=== PATIENT | female | born 1995 | race Caucasian/White ===

== ENCOUNTER 2017-07-19 17:39 | Outpatient (CLI) | payer MEDICAID | END 2017-07-19 21:09 | disposition home or self-care (01) | LOC: OBT 17:39 → L-D 17:41 → OBT 21:09 | DX: O26.892 Other specified pregnancy related conditions, second trimester (principal); Z3A.24 24 weeks gestation of pregnancy; J00 Acute nasopharyngitis [common cold] | CPT/HCPCS: 76815; 76817; 76818 ==

== ENCOUNTER 2017-07-20 12:18 | Outpatient (CLI) | payer MEDICAID | END 2017-07-20 14:12 | disposition home or self-care (01) | LOC: OBT 12:18 → L-D 12:18 → OBT 14:12 | DX: O26.872 Cervical shortening, second trimester (principal); Z3A.20 20 weeks gestation of pregnancy | CPT/HCPCS: Z7500 ==

== ENCOUNTER 2017-09-14 10:44 | Outpatient (CLI) | payer MEDICAID ==
[2017-09-14] MEDS: LACTATED RINGER'S 1,000 ML IV (12:43)
[2017-09-14] MEDS: TERBUTALINE 1 MG/ML INJ SC (12:44)
[2017-09-14 13:12] LABS: ADD UMIC NO; UR ASCORBIC ACID NEGATIVE (NEGATIVE); UR BILIRUBIN (Dip) NEGATIVE (NEGATIVE); UR BLOOD (Dip) NEGATIVE (NEGATIVE); UR CLARITY CLEAR (CLEAR); UR COLOR YELLOW (YELLOW); UR GLUCOSE (Dip) NEGATIVE (NEGATIVE); UR KETONES (Dip) 2+ mg/dL (NEGATIVE); UR LEUKOCYTE ESTERASE (Dip) NEGATIVE Leu/ul (NEGATIVE); UR NITRITE (Dip) NEGATIVE (NEGATIVE); UR SPECIFIC GRAVITY (Dip) 1.014 (1.003-1.030); UR TOTAL PROTEIN (Dip) NEGATIVE (NEGATIVE); UR UROBILINOGEN (Dip) 1+ mg/dL (NEGATIVE)
== END 2017-09-14 14:07 | disposition home or self-care (01) ==
LOC: OBT 10:44 → L-D 10:44 → OBT 14:07
DX: O62.9 Abnormality of forces of labor, unspecified (principal); Z3A.08 8 weeks gestation of pregnancy
CPT/HCPCS: 36415; 76815; 76817; 81003; 96360; 96372

== ENCOUNTER 2017-10-16 17:04 | Outpatient (CLI) | payer MEDICAID ==
[2017-10-16 18:44] LABS: RUPTURE FETAL MEMBRANES NEGATIVE (NEGATIVE)
== END 2017-10-16 19:28 | disposition home or self-care (01) ==
LOC: OBT 17:04 → L-D 17:05 → OBT 19:28
DX: O42.913 Preterm premature rupture of membranes, unspecified as to length of time between rupture and onset of labor, third trimester (principal); Z3A.33 33 weeks gestation of pregnancy
CPT/HCPCS: 76818; 84112

== ENCOUNTER 2017-11-17 18:07 | Outpatient (CLI) | payer MEDICAID | END 2017-11-17 20:40 | disposition home or self-care (01) | LOC: OBT 18:07 → L-D 18:08 → OBT 20:40 | DX: O36.8130 Decreased fetal movements, third trimester, not applicable or unspecified (principal); Z3A.37 37 weeks gestation of pregnancy | CPT/HCPCS: 76818 ==

== ENCOUNTER 2017-12-10 08:35 | Inpatient (IN) | payer MEDICAID ==
[2017-12-10] MEDS ORDERED: LIDOCAINE 1% (MPF) 30 ML INJ INJ (13:00)
[2017-12-10] MEDS ORDERED: OXYTOCIN 30 UNITS/LR 500 ML IV ×2 (13:00)
[2017-12-10] MEDS: NA PHOSPHATE/BIPHOS 133 ML ENEMA PR (13:00)
[2017-12-10] MEDS ORDERED: OXYCODONE/ASPIRIN (4.88/325) TAB PO (13:00)
[2017-12-10] MEDS ORDERED: MISOPROSTOL 200 MCG TAB PR (13:00)
[2017-12-10] MEDS ORDERED: IBUPROFEN 600 MG TAB PO (13:00)
[2017-12-10] MEDS ORDERED: METHYLERGONOVINE 0.2 MG INJ IM (13:00)
[2017-12-10 13:07] LABS: ADD UMIC NO; UR ASCORBIC ACID NEGATIVE (NEGATIVE); UR BILIRUBIN (Dip) NEGATIVE (NEGATIVE); UR BLOOD (Dip) NEGATIVE (NEGATIVE); UR CLARITY CLEAR (CLEAR); UR COLOR YELLOW (YELLOW); UR GLUCOSE (Dip) NEGATIVE (NEGATIVE); UR KETONES (Dip) NEGATIVE (NEGATIVE); UR LEUKOCYTE ESTERASE (Dip) NEGATIVE Leu/ul (NEGATIVE); UR NITRITE (Dip) NEGATIVE (NEGATIVE); UR SPECIFIC GRAVITY (Dip) 1.012 (1.003-1.030); UR TOTAL PROTEIN (Dip) NEGATIVE (NEGATIVE); UR UROBILINOGEN (Dip) NEGATIVE (NEGATIVE)
[2017-12-10] MEDS: LACTATED RINGER'S 1,000 ML IV* ×2 (14:54→22:27)
[2017-12-10] MEDS: MISOPROSTOL 25 MCG CAPSULE PO ×3 (14:59→23:56)
[2017-12-10 15:00] LABS: ADD MAN DIFF? NO
[2017-12-10 15:03] LABS: BASOPHILS % 0.5 % (0.0-2.0); EOSINOPHILS # 0.1 10^3/ul (0.0-0.5); EOSINOPHILS % 1.4 % (0.0-7.0); HEMATOCRIT 38.2 % (37.0-47.0); HEMOGLOBIN 13.7 g/dl (12.0-16.0); LYMPHOCYTES # 1.8 10^3/ul (0.8-2.9); LYMPHOCYTES % 20.4 % (15.0-51.0); MEAN CORPUSCULAR HGB CONC 35.9 g/dl (32.0-37.0); MEAN CORPUSCULAR VOLUME 86.4 fl (82.0-101.0); MEAN PLATELET VOLUME 11.9 fl (7.4-10.4); MONOCYTE # 0.6 10^3/ul (0.3-0.9); MONOCYTES % 6.9 % (0.0-11.0); NEUTROPHIL # 6.1 10^3/ul (1.6-7.5); NEUTROPHILS % 70.5 % (39.0-77.0); PLATELET COUNT 220 10^3/UL (140-415); RED BLOOD COUNT 4.42 10^6/ul (4.20-5.40); RED CELL DISTRIBUTION WIDTH 12.8 % (11.5-14.5)
[2017-12-10 15:03] LABS: WHITE BLOOD COUNT 8.6 10^3/ul (4.8-10.8)
[2017-12-10 15:22] LABS: INR 0.82; PARTIAL THROMBOPLASTIN TIME 28.9 Sec (25.0-35.0); PROTIME 11.4 Sec (11.9-14.9); PT RATIO 0.9
[2017-12-10 15:24] LABS: ALANINE AMINOTRANSFERASE 21 IU/L (13-69); ALBUMIN/GLOBULIN RATIO 0.96; ALKALINE PHOSPHATASE 135 IU/L (42-121); ANION GAP 12 (8-16); ASPARTATE AMINO TRANSFERASE 19 IU/L (15-46); BILIRUBIN,INDIRECT 0.4 mg/dl (0-1.1); BILIRUBIN,TOTAL 0.4 mg/dl (0.2-1.3); BLOOD UREA NITROGEN 8 mg/dl (7-20); CALCIUM 8.8 mg/dl (8.4-10.2); CARBON DIOXIDE 21 mmol/L (21-31); CHLORIDE 110 mmol/L (97-110); CREATININE 0.56 mg/dl (0.44-1.00); GLUCOSE 109 mg/dl (70-220); POTASSIUM 3.8 mmol/L (3.5-5.1); SODIUM 139 mmol/L (135-144); TOTAL PROTEIN 6.1 g/dl (6.1-8.1); URIC ACID 6.4 mg/dl (3.1-7.9)
[2017-12-10 22:06] LABS: RAPID PLASMA REAGIN NONREACTIVE (NR)
[2017-12-11] MEDS: MISOPROSTOL 25 MCG CAPSULE PO ×3 (01:00→09:00)
[2017-12-11] MEDS: BUTORPHANOL 2 MG INJ IV ×2 (03:22→12:14)
[2017-12-11] MEDS: LACTATED RINGER'S 1,000 ML IV* ×3 (07:25→20:15)
[2017-12-11] MEDS: DINOPROSTONE 10 MG VAG SUPP VAG (13:12)
[2017-12-11] MEDS ORDERED: DIPHENHYDRAMINE 50 MG INJ IV (17:30)
[2017-12-11] MEDS ORDERED: ONDANSETRON 4 MG INJ IV (17:30)
[2017-12-11] MEDS ORDERED: NALOXONE (0.4 MG/ML) INJ IV (17:30)
[2017-12-12] MEDS: FENTAnyl 2MCG/ML-ROPIV 0.2% 100 ML BAG EPI ×4 (00:58→15:37)
[2017-12-12] MEDS: LACTATED RINGER'S 1,000 ML IV* ×3 (03:42→21:00)
[2017-12-12] MEDS: OXYTOCIN 30 UNITS/LR 500 ML IV ×3 (08:59→23:34)
[2017-12-12] MEDS: MINERAL OIL 30ML CUP PO (09:00)
[2017-12-12] MEDS: ONDANSETRON 4 MG INJ IV (17:58)
[2017-12-12] MEDS: OXYCODONE/ACETAMINOPHEN (5/325) TAB PO (18:13)
[2017-12-12] MEDS: CARBOPROST 250 MCG INJ IM (19:24)
[2017-12-12] MEDS: MAGNESIUM SULFATE 4 GM/100 ML 100 ML IV (20:16)
[2017-12-12 20:22] LABS: ADD MAN DIFF? NO
[2017-12-12 20:25] LABS: WHITE BLOOD COUNT 20.8 10^3/ul (4.8-10.8)
[2017-12-12 20:25] LABS: BASOPHIL # 0.1 10^3/ul (0.0-0.1); BASOPHILS % 0.3 % (0.0-2.0); HEMATOCRIT 39.6 % (37.0-47.0); HEMOGLOBIN 14.2 g/dl (12.0-16.0); LYMPHOCYTES # 1.2 10^3/ul (0.8-2.9); LYMPHOCYTES % 5.6 % (15.0-51.0); MEAN CORPUSCULAR HGB CONC 35.9 g/dl (32.0-37.0); MEAN CORPUSCULAR VOLUME 86.5 fl (82.0-101.0); MEAN PLATELET VOLUME 11.9 fl (7.4-10.4); MONOCYTE # 1.5 10^3/ul (0.3-0.9); MONOCYTES % 7.2 % (0.0-11.0); NEUTROPHIL # 17.9 10^3/ul (1.6-7.5); NEUTROPHILS % 86.4 % (39.0-77.0); PLATELET COUNT 217 10^3/UL (140-415); RED BLOOD COUNT 4.58 10^6/ul (4.20-5.40); RED CELL DISTRIBUTION WIDTH 12.8 % (11.5-14.5)
[2017-12-12 20:44] LABS: ALANINE AMINOTRANSFERASE 23 IU/L (13-69); ALBUMIN 2.7 g/dl (3.3-4.9); ALBUMIN/GLOBULIN RATIO 0.93; ALKALINE PHOSPHATASE 137 IU/L (42-121); ANION GAP 14 (8-16); ASPARTATE AMINO TRANSFERASE 24 IU/L (15-46); BILIRUBIN,INDIRECT 0.9 mg/dl (0-1.1); BILIRUBIN,TOTAL 0.9 mg/dl (0.2-1.3); BLOOD UREA NITROGEN 7 mg/dl (7-20); CALCIUM 8.4 mg/dl (8.4-10.2); CARBON DIOXIDE 19 mmol/L (21-31); CHLORIDE 106 mmol/L (97-110); CREATININE 0.61 mg/dl (0.44-1.00); GLUCOSE 127 mg/dl (70-220); POTASSIUM 3.7 mmol/L (3.5-5.1); SODIUM 135 mmol/L (135-144); TOTAL PROTEIN 5.6 g/dl (6.1-8.1)
[2017-12-12 20:45] LABS: URIC ACID 7.2 mg/dl (3.1-7.9)
[2017-12-12] MEDS: MAGNESIUM SULFATE 20 GM/500 ML 500 ML IV (20:45)
[2017-12-12] MEDS ORDERED: ONDANSETRON 4 MG INJ IV (23:00)
[2017-12-12] MEDS ORDERED: OXYCODONE/ASPIRIN (4.88/325) TAB PO ×2 (23:00)
[2017-12-12] MEDS ORDERED: DIBUCAINE 1% 30 GM OINT PR (23:00)
[2017-12-12] MEDS ORDERED: HYDROCODONE/APAP (5/325) TAB PO ×2 (23:00)
[2017-12-12] MEDS ORDERED: LANOLIN 7 GM TUBE TOP (23:00)
[2017-12-12] MEDS ORDERED: ACETAMINOPHEN 325 MG TAB PO (23:00)
[2017-12-12] MEDS: WITCH HAZEL/GLYCERIN PAD PR (23:33)
[2017-12-12] MEDS: IBUPROFEN 600 MG TAB PO (23:33)
[2017-12-12] MEDS: BENZOCAINE 20% 56 ML SPRAY TOP (23:34)
[2017-12-12] MEDS: SENNA/DOCUSATE NA (8.6MG/50MG) TAB PO (23:43)
[2017-12-13 01:40] LABS: MAGNESIUM 4.5 mg/dl (1.7-2.5)
[2017-12-13] MEDS: IBUPROFEN 600 MG TAB PO ×4 (05:37→23:40)
[2017-12-13 06:20] LABS: ADD MAN DIFF? NO
[2017-12-13 06:30] LABS: BASOPHIL # 0.1 10^3/ul (0.0-0.1); BASOPHILS % 0.4 % (0.0-2.0); EOSINOPHILS # 0.2 10^3/ul (0.0-0.5); EOSINOPHILS % 1.1 % (0.0-7.0); HEMATOCRIT 35.6 % (37.0-47.0); HEMOGLOBIN 12.3 g/dl (12.0-16.0); LYMPHOCYTES # 1.6 10^3/ul (0.8-2.9); LYMPHOCYTES % 10.2 % (15.0-51.0); MEAN CORPUSCULAR HEMOGLOBIN 30.1 pg (29.0-33.0); MEAN CORPUSCULAR HGB CONC 34.6 g/dl (32.0-37.0); MEAN CORPUSCULAR VOLUME 87.3 fl (82.0-101.0); MEAN PLATELET VOLUME 11.8 fl (7.4-10.4); MONOCYTE # 1.4 10^3/ul (0.3-0.9); MONOCYTES % 8.7 % (0.0-11.0); NEUTROPHIL # 12.4 10^3/ul (1.6-7.5); NEUTROPHILS % 79.2 % (39.0-77.0); PLATELET COUNT 179 10^3/UL (140-415); RED BLOOD COUNT 4.08 10^6/ul (4.20-5.40); RED CELL DISTRIBUTION WIDTH 13.1 % (11.5-14.5)
[2017-12-13 06:30] LABS: WHITE BLOOD COUNT 15.7 10^3/ul (4.8-10.8)
[2017-12-13] MEDS: MAGNESIUM SULFATE 20 GM/500 ML 500 ML IV (06:32)
[2017-12-13 07:14] LABS: MAGNESIUM 5.6 mg/dl (1.7-2.5)
[2017-12-13] MEDS: SENNA/DOCUSATE NA (8.6MG/50MG) TAB PO ×2 (09:50→20:40)
[2017-12-13 13:24] LABS: MAGNESIUM 6.3 mg/dl (1.7-2.5)
[2017-12-14] MEDS: IBUPROFEN 600 MG TAB PO ×2 (05:29→12:00)
[2017-12-14] MEDS: MAGNESIUM SULFATE 20 GM/500 ML 500 ML IV ×3 (07:39→11:51)
[2017-12-14] MEDS: SENNA/DOCUSATE NA (8.6MG/50MG) TAB PO (09:20)
[2017-12-14] MEDS: MEASLES,MUMPS,RUBELLA VACCINE INJ SC* (09:20)
== END 2017-12-14 13:25 | disposition home or self-care (01) | DRG 775 ==
LOC: OBT 08:35 → L-D 12-12 20:35 → PP1 12-12 22:07 → L-D 08:37 → OBT 12:33 → L-D 12:33
PROC: 10E0XZZ Delivery of Products of Conception, External Approach (ICD-10-PCS; principal; 2017-12-11)
PROC: 0HQ9XZZ Repair Perineum Skin, External Approach (ICD-10-PCS; 2017-12-11)
PROC: 3E033VJ Introduction of Other Hormone into Peripheral Vein, Percutaneous Approach (ICD-10-PCS; 2017-12-11)
DX: O48.0 Post-term pregnancy (principal); Z3A.41 41 weeks gestation of pregnancy; O70.0 First degree perineal laceration during delivery; O69.81X0 Labor and delivery complicated by cord around neck, without compression, not applicable or unspecified; Z37.0 Single live birth
CPT/HCPCS: 62319; 76815; 76818; 80053; 81003; 83735; 84560; 85025; 85384; 85610; 85730; 86592; 86850; 86900; 86901; 88307; 99464